=== PATIENT | female | born 1965 | race Hispanic/Latino ===

== ENCOUNTER 2017-09-25 22:16 | Emergency (ER) | payer MEDICARE, MEDICAID ==
[2017-09-25] MEDS ORDERED: Lidocaine 1% 20 ML MDV ONE (22:28)
[2017-09-25] MEDS ORDERED: Adacel (T-DAP) 0.5 ML VIAL ONE (22:28)
== END 2017-09-25 22:40 | disposition home or self-care (01) ==
LOC: BURERS 22:16
DX: S61.211A Laceration without foreign body of left index finger without damage to nail, initial encounter (principal); G47.30 Sleep apnea, unspecified; Z86.73 Personal history of transient ischemic attack (TIA), and cerebral infarction without residual deficits; Z79.02 Long term (current) use of antithrombotics/antiplatelets; Z79.899 Other long term (current) drug therapy; W26.0XXA Contact with knife, initial encounter
CPT/HCPCS: 12001; 90471; 90715; J2001

== ENCOUNTER 2019-06-23 10:23 | Outpatient (CLI) | payer MEDICARE, MEDICAID ==
--- NOTE | 2019-06-24 07:55 | ULT ---
RIGHT UPPER QUADRANT ULTRASOUND: 06/23/19 Ultrasonography of the right upper quadrant was performed for evaluation of continuing right upper qu adrant pain. The liver is normal in size measuring about 14 cm in length, but it is echo dense throughout. Fatty i nfiltration is presumed. No focal hepatic lesions were seen, nor were there any dilated ducts. The p atient's pancreas was largely obscured by bowel gas. The gallbladder contained no signs of stones or wall thickening. The common bile duct was a normal 4 mm wide. The right kidney appears normal and is 11.1 cm in length. IMPRESSION: 1. Diffuse fatty infiltration of the liver. 2. No evidence of gallbladder disease. POS: HOME
== END 2019-06-23 10:24 | disposition home or self-care (01) ==
LOC: BURULT 10:23
PROVIDERS: ATTEND Family Medicine
DX: R10.11 Right upper quadrant pain (principal); K76.0 Fatty (change of) liver, not elsewhere classified
CPT/HCPCS: 76705

== ENCOUNTER 2020-09-24 12:36 | Outpatient (CLI) | payer MEDICARE, MEDICAID ==
[2020-09-24 17:08] LABS: #Eosinphils 0.1 thou/uL (0.0-0.7); #Monocytes 0.5 thou/uL (0.11-0.59); #Neutrophils 6.7 thou/uL (1.40-6.50); %Basophils 0.3 % (0.0-1.0); %Eosinophils 0.7 % (0.0-10.0); %Lymphocytes 11.9 % (21.0-51.0); %Monocytes 5.5 % (0.0-10.0); %Neutrophils 81.7 % (42.0-75.0); Hemoglobin 13.8 g/dL (12.0-16.0); Mean Corpuscular HGB CONC 33.6 g/dL (32.0-36.0); Mean Corpuscular Hemoglobin 31.3 pg (27.0-31.0); Mean Corpuscular Volume 93.2 fL (78.0-98.0); Mean Platelet Volume 6.6 fL (7.4-10.4); Platelet Count 252 thou/uL (130-400); RBC Distribution Width 12.6 % (11.5-14.5); Red Blood Cell (RBC) Count 4.41 mill/uL (4.20-5.40); White Blood Cell (WBC) Count 8.2 thou/uL (4.8-10.8)
[2020-09-24 17:49] LABS: ALT (SGPT) 26 U/L (8-55); AST (SGOT) 23 U/L (5-34); Alkaline Phosphatase 105 U/L (40-110); Anion Gap 12 mmol/L (10-20); BUN (Urea Nitrogen) 16 mg/dL (9.8-20.1); Bilirubin, Total 0.7 mg/dL (0.2-1.2); CRP (Inflammatory) Less than 0.50 mg/dL (= or < 0.5); Calc. Creatinine Clearance 0 mL/min (70-130); Calcium 9.4 mg/dL (7.8-10.44); Carbon Dioxide 24 mmol/L (22-29); Chloride 109 mmol/L (98-107); Globulin 2.3 g/dL (2.4-3.5); Glucose 103 mg/dL (70-105); Potassium 3.8 mmol/L (3.5-5.1); Protein, Total 6.3 g/dL (6.0-8.3); Sodium 141 mmol/L (136-145)
[2020-09-27 08:40] LABS: QuantiFERON-TB Gold Plus Negative (Negative)
[2020-09-28 17:12] LABS: CCP IgG Antibody 0.9 EliAU/mL (<7 Negative); EliA RAS New Method **** NEW METHOD ****; Rheumatoid Factor IgA Antibody 3.1 IU/mL (<14 Negative); Rheumatoid Factor IgM Antibody 7.8 IU/mL (<3.5 Negative)
== END 2020-09-24 12:37 | disposition home or self-care (01) ==
LOC: BURRAD 12:36
PROVIDERS: ATTEND Internal Medicine Rheumatology
DX: M06.9 Rheumatoid arthritis, unspecified (principal)
CPT/HCPCS: 36415; 80053; 83520; 84681; 85025; 85652; 86140; 86200; 86480

== ENCOUNTER 2020-10-12 12:47 | Emergency (ER) | payer MEDICARE, MEDICAID ==
[2020-10-12] MEDS ORDERED: predniSONE 20 MG TAB ONE (13:05)
[2020-10-12] MEDS ORDERED: diphenhydrAMINE 25 MG CAP ONE (13:05)
== END 2020-10-12 13:09 | disposition home or self-care (01) ==
LOC: BURERS 12:47
DX: T78.40XA Allergy, unspecified, initial encounter (principal); G47.30 Sleep apnea, unspecified; Z79.899 Other long term (current) drug therapy
CPT/HCPCS: 99283; J7512; Q0163

== ENCOUNTER 2020-10-24 22:56 | Emergency (ER) | payer MEDICARE, MEDICAID ==
[2020-10-24 23:23] LABS: #Basophils 0.1 thou/uL (0.0-0.2); #Eosinphils 0.1 thou/uL (0.0-0.7); #Lymphocytes 3.4 thou/uL (1.20-3.40); #Monocytes 0.4 thou/uL (0.11-0.59); #Neutrophils 8.5 thou/uL (1.40-6.50); %Basophils 0.6 % (0.0-1.0); %Eosinophils 0.8 % (0.0-10.0); %Lymphocytes 27.4 % (21.0-51.0); %Monocytes 2.8 % (0.0-10.0); %Neutrophils 68.4 % (42.0-75.0); Hemoglobin 7.4 g/dL (12.0-16.0); Mean Corpuscular HGB CONC 32.7 g/dL (32.0-36.0); Mean Corpuscular Hemoglobin 30.9 pg (27.0-31.0); Mean Corpuscular Volume 94.3 fL (78.0-98.0); Mean Platelet Volume 5.6 fL (7.4-10.4); Platelet Count 317 thou/uL (130-400); RBC Distribution Width 13.9 % (11.5-14.5); Red Blood Cell (RBC) Count 2.39 mill/uL (4.20-5.40); White Blood Cell (WBC) Count 12.4 thou/uL (4.8-10.8)
[2020-10-24 23:41] LABS: ALT (SGPT) 23 U/L (8-55); AST (SGOT) 16 U/L (5-34); Alkaline Phosphatase 71 U/L (40-110); Anion Gap 16 mmol/L (10-20); BUN (Urea Nitrogen) 22 mg/dL (9.8-20.1); Bilirubin, Total 0.2 mg/dL (0.2-1.2); Calc. Creatinine Clearance 0 mL/min (70-130); Calcium 7.9 mg/dL (7.8-10.44); Carbon Dioxide 21 mmol/L (22-29); Chloride 108 mmol/L (98-107); Globulin 1.7 g/dL (2.4-3.5); Glucose 160 mg/dL (70-105); Potassium 3.7 mmol/L (3.5-5.1); Protein, Total 4.7 g/dL (6.0-8.3); Sodium 141 mmol/L (136-145)
[2020-10-24] MEDS ORDERED: Pantoprazole 40 MG VIAL ONE (23:47)
== END 2020-10-25 01:50 | disposition short-term general hospital (02) ==
LOC: BURERS 22:56
DX: K92.2 Gastrointestinal hemorrhage, unspecified (principal); R55 Syncope and collapse; M79.7 Fibromyalgia; Z79.899 Other long term (current) drug therapy
CPT/HCPCS: 36430; 71045; 80053; 83880; 84484; 85025; 86850; 86900; 86901; 86920; 93005; 94760; 96374; 99291; P9016; 36415; C9113

== ENCOUNTER 2020-12-17 16:43 | Emergency (ER) | payer MEDICARE, MEDICAID ==
[2020-12-17 17:21] LABS: #Eosinphils 0.1 thou/uL (0.0-0.7); #Lymphocytes 1.3 thou/uL (1.20-3.40); #Monocytes 0.3 thou/uL (0.11-0.59); #Neutrophils 2.8 thou/uL (1.40-6.50); %Basophils 0.6 % (0.0-1.0); %Eosinophils 1.9 % (0.0-10.0); %Lymphocytes 29.1 % (21.0-51.0); %Monocytes 6.4 % (0.0-10.0); Hemoglobin 13.5 g/dL (12.0-16.0); Mean Corpuscular HGB CONC 32.7 g/dL (32.0-36.0); Mean Corpuscular Hemoglobin 30.8 pg (27.0-31.0); Mean Corpuscular Volume 94.1 fL (78.0-98.0); Mean Platelet Volume 5.8 fL (7.4-10.4); Platelet Count 212 thou/uL (130-400); Red Blood Cell (RBC) Count 4.38 mill/uL (4.20-5.40); White Blood Cell (WBC) Count 4.5 thou/uL (4.8-10.8)
[2020-12-17 17:36] LABS: ALT (SGPT) 47 U/L (8-55); AST (SGOT) 28 U/L (5-34); Albumin 3.9 g/dL (3.5-5.0); Alkaline Phosphatase 88 U/L (40-110); Anion Gap 14 mmol/L (10-20); BUN (Urea Nitrogen) 15 mg/dL (9.8-20.1); Bilirubin, Total 0.3 mg/dL (0.2-1.2); Calc. Creatinine Clearance 0 mL/min (70-130); Calcium 9.1 mg/dL (7.8-10.44); Carbon Dioxide 25 mmol/L (22-29); Chloride 107 mmol/L (98-107); Globulin 2.6 g/dL (2.4-3.5); Glucose 73 mg/dL (70-105); Potassium 3.6 mmol/L (3.5-5.1); Protein, Total 6.5 g/dL (6.0-8.3); Sodium 142 mmol/L (136-145)
== END 2020-12-17 18:15 | disposition home or self-care (01) ==
LOC: BURERS 16:43
DX: R00.2 Palpitations (principal); M06.9 Rheumatoid arthritis, unspecified; Z79.52 Long term (current) use of systemic steroids; Z86.73 Personal history of transient ischemic attack (TIA), and cerebral infarction without residual deficits; Z79.899 Other long term (current) drug therapy
CPT/HCPCS: 80053; 84484; 85025; 93005

== ENCOUNTER 2021-09-02 23:25 | Emergency (ER) | payer MEDICARE, MEDICAID ==
[2021-09-03] MEDS ORDERED: Loratadine 10 MG TAB PO SCH (00:15)
== END 2021-09-03 00:30 | disposition home or self-care (01) ==
LOC: BURERS 23:25
DX: H10.10 Acute atopic conjunctivitis, unspecified eye (principal); M06.9 Rheumatoid arthritis, unspecified; G62.9 Polyneuropathy, unspecified; G47.30 Sleep apnea, unspecified; Z86.73 Personal history of transient ischemic attack (TIA), and cerebral infarction without residual deficits
CPT/HCPCS: 99282

== ENCOUNTER 2021-12-08 22:37 | Emergency (ER) | payer MEDICARE, MEDICAID | END 2021-12-08 23:03 | disposition home or self-care (01) | LOC: BURERS 22:37 | DX: M79.89 Other specified soft tissue disorders (principal); M06.9 Rheumatoid arthritis, unspecified; G47.30 Sleep apnea, unspecified; Z86.73 Personal history of transient ischemic attack (TIA), and cerebral infarction without residual deficits | CPT/HCPCS: 99283 ==

== ENCOUNTER 2021-12-16 12:27 | Outpatient (CLI) | payer MEDICARE, MEDICAID | END 2021-12-16 12:28 | disposition home or self-care (01) | LOC: BURRAD 12:27 | PROVIDERS: ATTEND Family Medicine | DX: S90.122A Contusion of left lesser toe(s) without damage to nail, initial encounter (principal) ==

== ENCOUNTER 2022-03-20 15:51 | Emergency (ER) | payer MEDICARE, MEDICAID ==
[2022-03-20] MEDS ORDERED: Iopamidol 370 76% 100 ML VIAL FS ONE (15:52)
[2022-03-20] MEDS ORDERED: Ketorolac Tromethamine 60 MG/2 ML VIAL ONE (16:16)
[2022-03-20 16:24] LABS: #Lymphocytes 1.1 thou/uL (1.20-3.40); #Monocytes 0.6 thou/uL (0.11-0.59); %Basophils 0.6 % (0.0-1.0); %Eosinophils 0.5 % (0.0-10.0); %Lymphocytes 23.7 % (21.0-51.0); %Monocytes 11.6 % (0.0-10.0); %Neutrophils 63.6 % (42.0-75.0); Hemoglobin 13.6 g/dL (12.0-16.0); Mean Corpuscular Hemoglobin 31.7 pg (27.0-31.0); Mean Corpuscular Volume 93.2 fL (78.0-98.0); Mean Platelet Volume 6.1 fL (7.4-10.4); Platelet Count 197 thou/uL (130-400); RBC Distribution Width 11.7 % (11.5-14.5); Red Blood Cell (RBC) Count 4.29 mill/uL (4.20-5.40); White Blood Cell (WBC) Count 4.7 thou/uL (4.8-10.8)
[2022-03-20 16:41] LABS: Anion Gap 13 mmol/L (10-20); BUN (Urea Nitrogen) 11 mg/dL (9.8-20.1); Calc. Creatinine Clearance 0 mL/min (70-130); Carbon Dioxide 24 mmol/L (22-29); Chloride 104 mmol/L (98-107); Estimated GFR 97; Glucose 101 mg/dL (70-105); Sodium 137 mmol/L (136-145)
== END 2022-03-20 17:14 | disposition home or self-care (01) ==
LOC: BURERS 15:51
DX: S20.212A Contusion of left front wall of thorax, initial encounter (principal); Z86.73 Personal history of transient ischemic attack (TIA), and cerebral infarction without residual deficits; W18.30XA Fall on same level, unspecified, initial encounter
CPT/HCPCS: 71260; 74177; 80048; 85025; 96374; J1885; Q9967

== ENCOUNTER 2022-04-15 13:08 | Emergency (ER) | payer MEDICARE, MEDICAID ==
[2022-04-15] MEDS ORDERED: Lidocaine 1% PF 5 ML VIAL ONE ×2 (13:35→13:40)
[2022-04-15] MEDS ORDERED: Lidocaine 1% w/Epinephrine 1:100K 50 ML VIAL ONE (13:37)
[2022-04-15] MEDS ORDERED: Lidocaine 1% (PF) 30 ML VIAL ONE (13:38)
[2022-04-15] MEDS ORDERED: Lidocaine 2% PF 5 ML VIAL ONE (13:39)
== END 2022-04-15 14:33 | disposition home or self-care (01) ==
LOC: BURERS 13:08
DX: S61.412A Laceration without foreign body of left hand, initial encounter (principal); Z86.73 Personal history of transient ischemic attack (TIA), and cerebral infarction without residual deficits; W26.8XXA Contact with other sharp object(s), not elsewhere classified, initial encounter
CPT/HCPCS: 12002; J2001

== ENCOUNTER 2023-08-01 06:02 | Emergency (ER) | payer MEDICARE, MEDICAID ==
[2023-08-01] MEDS ORDERED: Dexamethasone 10 MG/ML VIAL ONE (06:32)
[2023-08-01] MEDS ORDERED: Ketorolac Tromethamine 30 MG (1 mL) VIAL ONE (06:32)
[2023-08-01] MEDS ORDERED: HYDROcodone/Acetaminophen 5/325 mg Tablet ONE (06:33)
== END 2023-08-01 06:31 | disposition home or self-care (01) ==
LOC: BURERS 06:02
DX: S86.111A Strain of other muscle(s) and tendon(s) of posterior muscle group at lower leg level, right leg, initial encounter (principal); X58.XXXA Exposure to other specified factors, initial encounter
CPT/HCPCS: 96372; 99283; J1100; J1885

== ENCOUNTER 2024-02-06 09:21 | Emergency (ER) | payer MEDICARE, MEDICAID ==
[2024-02-06] MEDS ORDERED: Dexamethasone 4 MG TAB ONE (09:46)
== END 2024-02-06 09:53 | disposition home or self-care (01) ==
LOC: BURERS 09:21
DX: H10.11 Acute atopic conjunctivitis, right eye (principal)
CPT/HCPCS: 99283; J8540

== ENCOUNTER 2025-05-18 15:46 | Emergency (ER) | payer MEDICARE, MEDICAID ==
[2025-05-18] MEDS ORDERED: Metoclopramide HCl 10 MG (2 mL) VIAL ONE (16:20)
[2025-05-18] MEDS ORDERED: Acetaminophen 325 MG TAB ONE (16:24)
[2025-05-18 16:37] LABS: Anion Gap 18 mmol/L (10-20); BUN (Urea Nitrogen) 7 mg/dL (9.8-20.1); Calc. Creatinine Clearance 0 mL/min (70-130); Calcium 9.4 mg/dL (7.8-10.44); Carbon Dioxide 23 mmol/L (22-29); Chloride 104 mmol/L (98-107); Glucose 105 mg/dL (70-105); Potassium 3.7 mmol/L (3.5-5.1); Sodium 141 mmol/L (136-145)
== END 2025-05-18 18:12 | disposition home or self-care (01) ==
LOC: BURERS 15:46
DX: R51.9 Headache, unspecified (principal); R03.0 Elevated blood-pressure reading, without diagnosis of hypertension; R29.700 NIHSS score 0
CPT/HCPCS: 99284; J2765